=== PATIENT | female | born 1990 | race Caucasian/White ===

== ENCOUNTER 2016-07-03 12:23 | Emergency (ER) | payer OTHER ==
--- NOTE | 2016-07-03 13:06 | ER Document Report ---
ED Medical Screen (RME) - General Stated Complaint: ABDOMINAL PAIN Notes: 26 yo female c/o RLQ pain, vomiting. dull pain starting last night, worse today. + fever earlier today. no urinary complaints, no vaginal discharge. + RLQ pain, abdomen soft. + guarding, no rebound - Related Data Allergies/Adverse Reactions: No Known Allergies Allergy (Unverified 07/03/16 13:02) Physical Exam - Vital signs Vitals: Temp Pulse Resp BP Pulse Ox 98.0 F 95 18 113/69 98 07/03/16 12:59 07/03/16 12:59 07/03/16 12:59 07/03/16 12:59 07/03/16 12:59 Course - Vital Signs Vital signs: Temp Pulse Resp BP Pulse Ox 98.0 F 95 18 113/69 98 07/03/16 12:59 07/03/16 12:59 07/03/16 12:59 07/03/16 12:59 07/03/16 12:59
[2016-07-03 13:34] LABS: ABSOLUTE BASOPHILS # (AUTO) 0.1 10^3/uL (0.0-0.2); ABSOLUTE EOSINOPHILS # (AUTO) 0.1 10^3/uL (0.0-0.6); ABSOLUTE LYMPHOCYTES (AUTO) 1.9 10^3/uL (0.5-4.7); ABSOLUTE MONOCYTES (AUTO) 0.6 10^3/uL (0.1-1.4); ABSOLUTE NEUT (AUTO) 4.5 10^3/uL (1.7-8.2); BASOPHILS % (AUTO) 0.8 % (0-2); EOSINOPHILS % (AUTO) 2.1 % (0-6); HEMATOCRIT 41.1 % (36.0-47.0); HEMOGLOBIN 13.9 g/dL (12.0-15.5); HGB HCT DIFFERENCE 0.6; MEAN CORPUSCULAR HEMOGLOBIN 31.5 pg (27.0-33.4); MEAN CORPUSCULAR VOLUME 93 fl (80-97); MONOCYTES % (AUTO) 7.9 % (3-13); RED BLOOD COUNT 4.43 10^6/uL (3.72-5.28); RED CELL DISTRIBUTION WIDTH 12.2 % (11.5-14.0); SEGMENTED NEUTROPHILS % (AUTO) 62.2 % (42-78); WHITE BLOOD COUNT 7.2 10^3/uL (4.0-10.5)
[2016-07-03 13:38] LABS: APPEARANCE,URINE SLIGHTLY-CLOUDY; BILIRUBIN,URINE NEGATIVE (NEGATIVE); GLUCOSE, URINE NEGATIVE (NEGATIVE); KETONES,URINE NEGATIVE (NEGATIVE); LEUKOCYTE ESTERASE,URINE NEGATIVE (NEGATIVE); NITRITE,URINE NEGATIVE (NEGATIVE); PROTEIN,URINE NEGATIVE (NEGATIVE); URINE SPECIFIC GRAVITY 1.025; UROBILINOGEN,URINE NEGATIVE mg/dL (<2.0)
[2016-07-03 13:47] LABS: ALANINE AMINOTRANSFERASE 29 U/L (9-52); ALBUMIN 4.1 g/dL (3.5-5.0); ALKALINE PHOSPHATASE 63 U/L (38-126); ANION GAP 12 (5-19); ASPARTATE AMINO TRANSFERASE 15 U/L (14-36); BILIRUBIN,TOTAL 0.6 mg/dL (0.2-1.3); BLOOD UREA NITROGEN 16 mg/dL (7-20); CALCIUM 9.7 mg/dL (8.4-10.2); CARBON DIOXIDE 26 mmol/L (22-30); CHLORIDE 106 mmol/L (98-107); CREATININE RESULT 0.73 mg/dL (0.52-1.25); GLUCOSE 70 mg/dL (75-110); POTASSIUM 4.6 mmol/L (3.6-5.0); SODIUM 144.4 mmol/L (137-145); TOTAL PROTEIN 7.2 g/dL (6.3-8.2)
--- NOTE | 2016-07-03 16:25 | ER Document Report ---
ED GI/ - General Mode of Arrival: Ambulatory Information source: Patient TRAVEL OUTSIDE OF THE [place]. IN LAST 30 DAYS: No <BARON BOWMAN - Last Filed: 07/03/16 18:15> <MILAGROS WEST - Last Filed: 07/15/16 13:04> - General Chief Complaint: Abdominal Pain Stated Complaint: ABDOMINAL PAIN Notes: Patient is 26-year-old female presenting to the emergency department concerned of right lower quadrant abdominal pain onset 2 AM today. 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 Patient does not believe that she is at this time. Patient also reports a positive family history of polycystic ovarian syndrome. Patient's last cyst was about a year and a half ago. Patient admits to nausea and vomiting, but denies diarrhea. Patient has no other complaints at this time. (BARON BOWMAN) - Related Data Allergies/Adverse Reactions: lorazepam [From Ativan] Allergy (Verified 07/03/16 13:21) Past Medical History - General Information source: Patient - Social History Smoking Status: Current Every Day Smoker Chew tobacco use (# tins/day): No Frequency of alcohol use: None Drug Abuse: None Family History: Reviewed & Not Pertinent Patient has suicidal ideation: No Patient has homicidal ideation: No Renal/ Medical History: Reports: Hx Ovarian Cysts, Other - Endometriosis. Denies: Hx Peritoneal Dialysis Surgical Hx: Negative <BARON BOWMAN - Last Filed: 07/03/16 18:15> Review of Systems - Review of Systems Constitutional: No symptoms reported EENT: No symptoms reported Cardiovascular: No symptoms reported Respiratory: No symptoms reported Gastrointestinal: See HPI, Abdominal pain, Vomiting Genitourinary: No symptoms reported Female Genitourinary: No symptoms reported Musculoskeletal: No symptoms reported Skin: No symptoms reported Hematologic/Lymphatic: No symptoms reported Neurological/Psychological: No symptoms reported <BARON BOWMAN - Last Filed: 07/03/16 18:15> Physical Exam - Vital signs Interpretation: Normal - General General appearance: Alert - HEENT Head: Normocephalic, Atraumatic Eyes: Normal Pupils: PERRL - Respiratory Respiratory status: No respiratory distress Chest status: Nontender Breath sounds: Normal Chest palpation: Normal - Cardiovascular Rhythm: Regular Heart sounds: Normal auscultation Murmur: No - Abdominal Distension: No distension Bowel sounds: Normal Tenderness: Tender - Suprapubic tenderness to palpation Organomegaly: No organomegaly - Back Back: Normal, Nontender - Extremities General upper extremity: Normal inspection, Nontender, Normal color, Normal ROM , Normal temperature General lower extremity: Normal inspection, Nontender, Normal color, Normal ROM , Normal temperature - Neurological Neuro grossly intact: Yes Cognition: Normal [place] Coma Scale Eye Opening: Spontaneous [place] Com[place] Scale Verbal: Oriented [place] Coma Scale Motor: Obeys Commands [place] Coma Scale Total: 15 Speech: Normal - Psychological Associated symptoms: Normal affect, Normal mood - Skin Skin Temperature: Warm Skin Moisture: Dry Skin Color: Normal <BARON BOWMAN - Last Filed: 07/03/16 18:15> Course - Laboratory Result Diagrams: 07/03/16 13:21 07/03/16 13:21 <BARON BOWMAN - Last Filed: 07/03/16 18:15> - Laboratory Result Diagrams: 07/03/16 13:21 07/03/16 13:21 <MILAGROS WEST - Last Filed: 07/15/16 13:04> - Vital Signs Vital signs: Temp Pulse Resp BP Pulse Ox 98.5 F 65 18 108/59 L 100 07/03/16 17:26 07/03/16 17:26 07/03/16 17:26 07/03/16 17:26 07/03/16 17:26 (BARON BOWMAN) (MILAGROS WEST) - Laboratory Laboratory results interpreted by ny: 07/03/16 13:21 Glucose 70 L (BARON BOWMAN) (MILAGROS WEST) Discharge <BARON BOWMAN - Last Filed: 07/03/16 18:15> <MILAGROS WEST - Last Filed: 07/15/16 13:04> - Discharge Clinical Impression: History of polycystic ovarian syndrome Condition: Stable Disposition: HOME, SELF-CARE Additional Instructions: history Ovarian Cyst and polycystic ovarian syndrome Your examination shows the presence of an ovarian cyst. This is a ball of fluid attached to the ovary. Ovarian cysts in women of child-bearing age are usually innocent. However, the cyst may cause pain when it grows or bursts. An innocent ovarian cyst will usually go away by itself. When the cyst becomes painful, you should rest. Pain medication may be required. Some women find a hot water bottle soothing. The pain usually resolves within one or two days. After menopause, an ovarian cyst may mean a tumor, and requires more aggressive evaluation -- usually surgery is recommended to remove or biopsy the cyst. A very large cyst requires evaluation at any age. Most cysts (even the innocent ones) require follow-up examination. Call the doctor or return at any time if the pain increases significantly, if you become faint, or if you experience vaginal bleeding. Follow-up with your [employer] physician in one to 2 days to discuss getting back on hormonal therapy for your polycystic ovarian syndrome return to the ER sooner for increasing worsening or new symptoms Prescriptions: Naproxen [Naprosyn 375 Mg Tablet] 375 mg PO DAILY #12 tablet Scribe Documentation - Scribe Written by Pawan:: Baron Bowman 07/03/2016 1625 acting as scribe for :: Manish <BARON BOWMAN - Last Filed: 07/03/16 18:15>
[2016-07-03] MEDS ORDERED: KETOROLAC TROMETHAMINE 60 MG/2 ML SDV IM ONE (17:03)
[2016-07-03 17:28] VITALS: BP 108/59
== END 2016-07-03 17:28 | disposition home or self-care (01) ==
LOC: ER 12:23
DX: E28.2 Polycystic ovarian syndrome (principal); R10.31 Right lower quadrant pain; R11.2 Nausea with vomiting, unspecified; F17.200 Nicotine dependence, unspecified, uncomplicated; Z87.42 Personal history of other diseases of the female genital tract; Z83.49 Family history of other endocrine, nutritional and metabolic diseases; Z87.59 Personal history of other complications of pregnancy, childbirth and the puerperium; Z88.8 Allergy status to other drugs, medicaments and biological substances
CPT/HCPCS: 99284; 96372; 36415; 84703; 85025; 80053; 81001; J1885

== ENCOUNTER 2016-08-29 19:56 | Emergency (ER) | payer OTHER ==
[2016-08-29] MEDS ORDERED: HYDROCODONE/ACETAMINOPHEN 5-325 MG 6 TAB/DSPK PO PRN (22:10)
--- NOTE | 2016-08-29 22:11 | ER Document Report ---
ED Neck/Back Problem - General Chief Complaint: Low Back Pain Stated Complaint: BACK PAIN Time seen by provider: 22:10 Mode of Arrival: Ambulatory Information source: Patient TRAVEL OUTSIDE OF THE [place] IN LAST 30 DAYS: No - HPI Patient complains to provider of: Pain, Lower back Onset: Other - Chronic Onset: Chronic Timing: Constant Quality of pain: Achy Severity: Moderate Pain Level: 3 Recent injury: No Exacerbated by: Movement of trunk Relieved by: Nothing Similar symptoms previously: Yes Recently seen / treated by doctor: No Notes: Patient is a 26-year-old female who presents to the emergency room for complaints of low back pain, she reports a history of chronic low back pain with herniated disks in the lumbar spine, states she normally goes to [facility], however she last had an appointment there on July 04 and has been out of town since, she returned and unfortunately cannot get another appointment until October 04, she is currently out of her medications, states she takes Percocet 10 mg 4 times a day patient denies any injury, no saddle anesthesia, no bowel or bladder dysfunction, she does report that pain shoots down her left leg - Related Data Allergies/Adverse Reactions: lorazepam [From Ativan] Allergy (Verified 07/03/16 13:21) Past Medical History - General Information source: Patient - Social History Smoking Status: Former Smoker Family History: Reviewed & Not Pertinent Patient has suicidal ideation: No Patient has homicidal ideation: No Renal/ Medical History: Reports: Hx Ovarian Cysts. Denies: Hx Peritoneal Dialysis Review of Systems - Review of Systems Constitutional: No symptoms reported EENT: No symptoms reported Cardiovascular: No symptoms reported Respiratory: No symptoms reported Gastrointestinal: No symptoms reported Genitourinary: No symptoms reported Female Genitourinary: No symptoms reported Musculoskeletal: See HPI Skin: No symptoms reported Hematologic/Lymphatic: No symptoms reported Neurological/Psychological: No symptoms reported -: Yes All other systems reviewed and negative Physical Exam - Vital signs Vitals: Temp Pulse Resp BP Pulse Ox 97.7 F 94 20 110/65 99 08/29/16 20:56 08/29/16 20:56 08/29/16 20:56 08/29/16 20:56 08/29/16 20:56 - Notes Notes: - General General appearance: Appears well, Alert In distress: None - HEENT Head: Normocephalic, Atraumatic Eyes: Normal Conjunctiva: Normal Extraocular movements intact: Yes Eyelashes: Normal Pupils: PERRL - Respiratory Respiratory status: No respiratory distress - Cardiovascular Rhythm: Regular - Abdominal Inspection: Normal - Back Back: Left lower lumbar paraspinal muscular tenderness - Extremities General upper extremity: Normal inspection General lower extremity: Normal inspection - Neurological Neuro grossly intact: Yes Orientation: AAOx4 [place] Coma Scale Eye Opening: Spontaneous [place] Coma Scale Verbal: Oriented [place] Com[place] Scale Motor: Obeys Commands [place] Coma Scale Total: 15 - Psychological Associated symptoms: Normal affect, Normal mood - Skin Skin Temperature: Warm Skin Moisture: Dry Skin Color: Normal Course - Re-evaluation Re-evalutation: 08/29/16 23:13 Patient was provided with a small amount of narcotic pain medication and advised to follow-up with her buildings painter within the next week, I did consult the [place] controlled substances board website and found patient has not had any recent narcotic prescriptions filled, patient was advised to continue gentle stretching, physical therapy, return if symptoms worsen, patient acknowledges understanding and agreement with this plan - Vital Signs Vital signs: Temp Pulse Resp BP Pulse Ox 97.7 F 94 20 110/65 99 08/29/16 20:56 08/29/16 20:56 08/29/16 20:56 08/29/16 20:56 08/29/16 20:56 Discharge - Discharge Clinical Impression: Low back pain Qualifiers: Chronicity: chronic Back pain laterality: left Sciatica presence: with sciatica Sciatica laterality: sciatica of left side Qualified Code(s): M54.42 - Lumbago with sciatica, left side Condition: Stable Disposition: HOME, SELF-CARE Instructions: Ice Packs ([facility]), Oral Narcotic Medication ([facility]), Low Back Pain ( [facility]), Warm Packs ([facility]) Additional Instructions: Follow up with your primary care provider and buildings painter in one to 2 days. Return to the emergency room immediately if symptoms worsen or any additional concerns. Prescriptions: Oxycodone HCl/Acetaminophen [Percocet 5-325 mg Tablet] 1 - 2 tab PO ASDIR PRN # 15 tablet PRN Reason:
[2016-08-29 23:25] VITALS: BP 111/66
== END 2016-08-29 23:30 | disposition home or self-care (01) ==
LOC: ER 19:56
DX: G89.29 Other chronic pain (principal); M51.16 Intervertebral disc disorders with radiculopathy, lumbar region; Z88.8 Allergy status to other drugs, medicaments and biological substances; Z87.891 Personal history of nicotine dependence
CPT/HCPCS: 99283

== ENCOUNTER 2016-09-30 22:33 | Emergency (ER) | payer OTHER ==
[2016-09-30] MEDS ORDERED: HYDROMORPHONE HCL INJ/PF 2 MG/ML AMPULE IV ONE (23:48)
[2016-09-30] MEDS ORDERED: KETOROLAC TROMETHAMINE INJ/PF 30 MG/1 ML SDV IV ONE (23:48)
[2016-09-30] MEDS ORDERED: ACETAMINOPHEN 325 MG TABLET PO ONE (23:48)
[2016-09-30] MEDS ORDERED: LIDOCAINE 5% (700 MG) TRANSDERMAL ADH..PATCH TP ONE (23:48)
--- NOTE | 2016-09-30 23:52 | ER Document Report ---
ED General - General Chief Complaint: Back Pain Stated Complaint: BACK PAIN Time Seen by Provider: 09/30/16 23:30 Notes: Patient is a 26-year-old female past medical history of chronic low back pain currently off pain management who presents with acute worsening of her chronic back pain. Does describe it as a severe, stabbing, constant pain that is mostly in her left perilumbar spine that radiates into her left leg. This this started abruptly without apparent cause. She did have one episode of urinary incontinence when the pain was at its most severe. Denies any urinary retention , fecal incontinence or retention, weakness, numbness, or inability to ambulate. States she's had similar episodes in the past with exacerbation of her pain. She has not seen her primary doctor regarding today's concerns. She denies any fever, IV drug use, throat, back. TRAVEL OUTSIDE OF THE [place] IN LAST 30 DAYS: No - Related Data Allergies/Adverse Reactions: fentanyl Allergy (Verified 09/30/16 22:57) lorazepam [From Ativan] Allergy (Verified 07/03/16 13:21) Past Medical History - General Information source: Patient - Social History Smoking Status: Never Smoker Frequency of alcohol use: None Drug Abuse: None Lives with: Spouse/Significant other Family History: Reviewed & Not Pertinent Patient has suicidal ideation: No Patient has homicidal ideation: No Renal/ Medical History: Reports: Hx Ovarian Cysts. Denies: Hx Peritoneal Dialysis Psychiatric Medical History: Reports: Hx Bipolar Disorder Past Surgical History: Reports: Hx Gynecologic Surgery - d/c, Hx Hysterectomy, Hx Tonsillectomy - Immunizations Hx Diphtheria, Pertussis, Tetanus Vaccination: Yes Review of Systems - Review of Systems Notes: Constitutional: Negative for fever. HENT: Negative for sore throat. Eyes: Negative for visual changes. Cardiovascular: Negative for chest pain. Respiratory: Negative for shortness of breath. Gastrointestinal: Negative for abdominal pain, vomiting or diarrhea. Genitourinary: Negative for dysuria. Musculoskeletal: Positive for back pain. Skin: Negative for rash. Neurological: Negative for headaches, weakness or numbness. 10 point ROS negative except as marked above and in HPI. Physical Exam - Vital signs Vitals: Temp Pulse Resp BP Pulse Ox 98.0 F 149 H 16 116/78 99 09/30/16 22:53 09/30/16 22:53 09/30/16 22:53 09/30/16 22:53 09/30/16 22:53 Interpretation: Tachycardic Notes: PHYSICAL EXAMINATION: GENERAL: Appears to be in significant pain HEAD: Atraumatic, normocephalic. EYES: Pupils equal round and reactive to light, extraocular movements intact, sclera anicteric, conjunctiva are normal. ENT: nares patent, oropharynx clear without exudates. Moist mucous membranes. NECK: Normal range of motion, supple without lymphadenopathy LUNGS: Breath sounds clear to auscultation bilaterally and equal. No wheezes rales or rhonchi. HEART: Regular rate and rhythm without murmurs ABDOMEN: Soft, nontender, normoactive bowel sounds. No guarding, no rebound. No masses appreciated. Rectal: Normal rectal tone Back: No midline spinal tenderness, step-offs or deformities. EXTREMITIES: Normal range of motion, no pitting or edema. No cyanosis. NEUROLOGICAL: 5 out of 5 strength both distally and proximally bilateral lower extremities. 2+ patellar reflexes bilaterally. No clonus. Sensation grossly intact in the bilateral lower extremities. Patient is able to ambulate without difficulty. PSYCH: Normal mood, normal affect. SKIN: Warm, Dry, normal turgor, no rashes or lesions noted. Course - Re-evaluation Re-evalutation: 09/30/16 23:49 Patient presents with acute worsening of her chronic back pain that she sustained after an axial load injury while in the [employer]. She did have urinary incontinence today during the worst portion of the pain and I suspect this was pain related. Exam is without point tenderness over vertebral bodies, pulsatile abdominal mass , and patient has symmetric and intact lower extremity strength, sensation, and reflexes without clonus. 2+ symmetric medial malleolar and dorsalis pedis pulses. She is able to ambulate on heels and toes. Rectal exam with normal tone. At this time do not see any indication for acute neurologic imaging. Will provide pain control and reassess 10/01/16 01:35 Patient is had resolution of her pain. No further urinary incontinence. She has voided without difficulty. Ambulatory without difficulty.At this time will discharge with return precautions and follow-up recommendations. Verbal discharge instructions given a the bedside and opportunity for questions given. Medication warnings reviewed. Patient is in agreement with this plan and has verbalized understanding of return precautions and the need for primary care follow-up in the next 24-72 hours. - Vital Signs Vital signs: Temp Pulse Resp BP Pulse Ox 98.0 F 149 H 14 97/67 L 95 09/30/16 22:53 09/30/16 22:53 10/01/16 01:26 10/01/16 01:26 10/01/16 01:26 Discharge - Discharge Clinical Impression: Back pain Qualifiers: Back pain location: low back pain Chronicity: acute Back pain laterality: left Sciatica presence: with sciatica Sciatica laterality: sciatica of left side Qualified Code(s): M54.42 - Lumbago with sciatica, left side Condition: Good Disposition: HOME, SELF-CARE Additional Instructions: You have been seen in the Emergency Department (ED) today for back pain. Your workup and exam have not shown any acute abnormalities and you are likely suffering from muscle strain or possible problems with your discs, but there is no treatment that will fix your symptoms at this time. Please take ibuprofen 600 mg every 6 hours in conjunction with Tylenol 1000 mg every 6 hours. You can take the morphine that you were sent home with for pain that is not controlled by the Tylenol and ibuprofen. You should also purchase a local lidocaine cream such as "aspercreme with lidocaine" and use per bottle instructions to the affected area. Apply heat to the area as often as you are able. Continue to keep active and avoid prolonged periods of bed rest. Please follow up with your doctor as soon as possible regarding today's ED visit and your back pain. Return to the ED for worsening back pain, fever, weakness or numbness of either leg, or if you develop either (1) an inability to urinate or have bowel movements, or (2) loss of your ability to control your bathroom functions (if you start having "accidents"), or if you develop other new symptoms that concern you.concern you. With strongly recommend that you follow-up with [facility] or [facility] neurosurgery for consideration of a surgical management of your back pain given your severe radicular symptoms and failure alternative therapies. Prescriptions: Morphine Sulfate [Morphine Ir 15 mg Tablet] 15 mg PO Q4HP PRN #12 tablet PRN Reason:
[2016-10-01] MEDS ORDERED: HYDROMORPHONE HCL INJ/PF 2 MG/ML AMPULE IV ONE (00:48)
[2016-10-01 02:17] VITALS: BP 104/71
== END 2016-10-01 02:10 | disposition home or self-care (01) ==
LOC: ER 22:33
DX: M54.42 Lumbago with sciatica, left side (principal); G89.29 Other chronic pain; R32 Unspecified urinary incontinence; R00.0 Tachycardia, unspecified
CPT/HCPCS: 96376; 99283; 96374; 96375; J1885; J1170

== ENCOUNTER 2016-10-17 15:38 | Emergency (ER) | payer OTHER ==
[2016-10-17] MEDS ORDERED: KETOROLAC TROMETHAMINE 60 MG/2 ML SDV IM ONE (16:19)
[2016-10-17] MEDS ORDERED: PROMETHAZINE HCL 25 MG TABLET PO ONE (16:20)
[2016-10-17] MEDS ORDERED: OXYCODONE-ACETAMINOPHEN 5-325 MG TABLET PO ONE (16:20)
--- NOTE | 2016-10-17 16:24 | ER Document Report ---
ED Medical Screen (RME) - General Chief Complaint: Pelvic Pain Stated Complaint: VAGINAL BLEEDING Time Seen by Provider: 10/17/16 16:19 Notes: Patient is complaining of pelvic pain for the past 5 weeks, ever since 09/12, when she had a Mirena IUD placed. She had severe pain at the time that the IUD was put in and has had constant, daily pain ever since then. She has been back to see the primary care physician and put the IUD in and they declined to remove it and said that it was normal for her to hurt for a while and it would get better. She attempted to go back a second time and was advised that if she was having this much pain, that she should come to the emergency department to be evaluated patient says she has had constant bleeding since the IUD was inserted. No other symptoms. No fevers. Patient has a history of endometriosis as well as PCOS. TRAVEL OUTSIDE OF THE [place] IN LAST 30 DAYS: No - Related Data Allergies/Adverse Reactions: fentanyl Allergy (Verified 10/17/16 16:03) lorazepam [From Ativan] Allergy (Verified 10/17/16 16:03) Past Medical History Renal/ Medical History: Reports: Hx Ovarian Cysts. Denies: Hx Peritoneal Dialysis Psychiatric Medical History: Reports: Hx Bipolar Disorder Past Surgical History: Reports: Hx Gynecologic Surgery - d/c, Hx Hysterectomy, Hx Tonsillectomy - Immunizations Hx Diphtheria, Pertussis, Tetanus Vaccination: Yes Physical Exam - Vital signs Vitals: Temp Pulse Resp BP Pulse Ox 97.4 F 64 18 108/65 100 10/17/16 15:47 10/17/16 15:47 10/17/16 15:47 10/17/16 15:47 10/17/16 15:47 Course - Vital Signs Vital signs: Temp Pulse Resp BP Pulse Ox 97.4 F 64 18 108/65 100 10/17/16 15:47 10/17/16 15:47 10/17/16 15:47 10/17/16 15:47 10/17/16 15:47 - Laboratory Result Diagrams: 10/17/16 17:35
[2016-10-17 17:49] LABS: ABSOLUTE BASOPHILS # (AUTO) 0.1 10^3/uL (0.0-0.2); ABSOLUTE EOSINOPHILS # (AUTO) 0.1 10^3/uL (0.0-0.6); ABSOLUTE LYMPHOCYTES (AUTO) 2.4 10^3/uL (0.5-4.7); ABSOLUTE MONOCYTES (AUTO) 0.5 10^3/uL (0.1-1.4); ABSOLUTE NEUT (AUTO) 4.6 10^3/uL (1.7-8.2); EOSINOPHILS % (AUTO) 1.3 % (0-6); HEMATOCRIT 42.3 % (36.0-47.0); HEMOGLOBIN 14.2 g/dL (12.0-15.5); HGB HCT DIFFERENCE 0.3; LYMPHOCYTES % (AUTO) 30.8 % (13-45); MEAN CORPUSCULAR HEMOGLOBIN 31.2 pg (27.0-33.4); MEAN CORPUSCULAR HGB CONC 33.6 g/dL (32.0-36.0); MEAN CORPUSCULAR VOLUME 93 fl (80-97); MONOCYTES % (AUTO) 6.5 % (3-13); RED BLOOD COUNT 4.55 10^6/uL (3.72-5.28); RED CELL DISTRIBUTION WIDTH 12.5 % (11.5-14.0); SEGMENTED NEUTROPHILS % (AUTO) 60.4 % (42-78); WHITE BLOOD COUNT 7.7 10^3/uL (4.0-10.5)
--- NOTE | 2016-10-17 18:40 | RADIOLOGY REPORT (SQ) ---
EXAM DESCRIPTION: U/S NON OB PEL TV W/DOPPLER COMPLETED DATE/TIME: 10/17/2016 6:05 pm REASON FOR STUDY: Severe pelvic pain since IUD insertion 5 weeks ago COMPARISON: None. TECHNIQUE: Dynamic and static grayscale images acquired of the pelvis via transvaginal approach and recorded on PACS. Additional selected color Doppler and spectral images recorded. LIMITATIONS: None. FINDINGS: UTERUS: Contour normal. No mass. ENDOMETRIAL STRIPE: An IUD is present. CERVIX: No nabothian cysts. RIGHT OVARY: Small follicles are present peripherally. RIGHT OVARY DOPPLER: Normal arterial vascular flow without evidence for torsion. LEFT OVARY: Small follicles are present peripherally. LEFT OVARY DOPPLER: Normal arterial vascular flow without evidence for torsion. FREE FLUID: None noted. OTHER: No other significant finding. MEASUREMENTS: UTERUS: 63 x 40 x 37 mm ENDOMETRIAL STRIPE: 5 mm RIGHT OVARY: 36 x 23 x 22 mm LEFT OVARY: 38 x 49 x 25 mm IMPRESSION: The study is essentially normal. The appearance of the follicles in each ovary does rev eal raises the issue of polycystic ovarian syndrome. Correlate clinically. TECHNICAL DOCUMENTATION: JOB ID: [id number] [employer]- All Rights Reserved
--- NOTE | 2016-10-17 19:58 | ER Document Report ---
ED GI/ - General Chief Complaint: Pelvic Pain Stated Complaint: VAGINAL BLEEDING Time Seen by Provider: 10/17/16 16:19 Mode of Arrival: Ambulatory Information source: Patient Notes: Pt is a 26 year old female who presents to the ER today for pelvic pain x 5 weeks after getting Mirena put in. Pt has seen her provider that put it in, but they refused to take it out per pt because of the "cost of putting it in." She has been in pain every day since, with first bright red blood, then brown blood daily. She hasn't stopped bleeding at all she states. She denies any otherwise abnormal vaginal discharge, dysuria She does have a history of pcos. She states she is unable to have sexual intercourse due to the pain. TRAVEL OUTSIDE OF THE [place] IN LAST 30 DAYS: No - Related Data Allergies/Adverse Reactions: fentanyl Allergy (Verified 10/17/16 16:03) lorazepam [From Ativan] Allergy (Verified 10/17/16 16:03) Past Medical History - General Information source: Patient - Social History Smoking Status: Unknown if Ever Smoked Family History: Reviewed & Not Pertinent Renal/ Medical History: Reports: Hx Ovarian Cysts. Denies: Hx Peritoneal Dialysis Psychiatric Medical History: Reports: Hx Bipolar Disorder Past Surgical History: Reports: Hx Gynecologic Surgery - d/c, Hx Hysterectomy, Hx Tonsillectomy - Immunizations Hx Diphtheria, Pertussis, Tetanus Vaccination: Yes Review of Systems - Review of Systems Constitutional: No symptoms reported EENT: No symptoms reported Cardiovascular: No symptoms reported Respiratory: No symptoms reported Gastrointestinal: No symptoms reported Genitourinary: No symptoms reported Female Genitourinary: See HPI Musculoskeletal: No symptoms reported Skin: No symptoms reported Hematologic/Lymphatic: No symptoms reported Neurological/Psychological: No symptoms reported Physical Exam - Vital signs Vitals: Temp Pulse Resp BP Pulse Ox 97.4 F 64 18 108/65 100 10/17/16 15:47 10/17/16 15:47 10/17/16 15:47 10/17/16 15:47 10/17/16 15:47 - Notes Notes: PHYSICAL EXAMINATION: GENERAL: Well-appearing and in no acute distress. HEAD: Atraumatic, normocephalic. EYES: Pupils equal round and reactive to light, extraocular movements intact, sclera anicteric, conjunctiva are normal. NECK: Normal range of motion, supple without lymphadenopathy LUNGS: CTAB and equal. No wheezes rales or rhonchi. HEART: Regular rate and rhythm without murmurs ABDOMEN: Soft, pubic tenderness. No guarding, no rebound BACK: no vertebral tenderness, normal ROM GI/: no CVA tenderness pelvic: Cervical motion tenderness, brown blood and vaginal canal, IUD strings present, adnexal tenderness bilaterally with exam, increased tenderness to pelvic exam EXTREMITIES: Normal range of motion, no pitting edema. No cyanosis. NEUROLOGICAL: Cranial nerves grossly intact. Normal sensory/motor exams. PSYCH: Normal mood, normal affect. SKIN: Warm, Dry, normal turgor, no rashes or lesions noted Course - Re-evaluation Re-evalutation: 10/17/16 21:02 IUD was removed successfully. Patient will be placed on antibiotics for pelvic inflammatory disease, wet mount sent to lab but patient does not want to wait on results. - Vital Signs Vital signs: Temp Pulse Resp BP Pulse Ox 97.5 F 68 20 110/70 99 10/17/16 21:17 10/17/16 21:17 10/17/16 21:17 10/17/16 21:17 10/17/16 21:17 - Laboratory Result Diagrams: 10/17/16 17:35 Procedures - Pelvic Exam Pelvic exam Time completed: 21:00 Cultures obtained: Yes Wet prep obtained: Yes Foreign body removed: Yes - IUD Bimanual exam performed: Yes - Cervical motion tenderness, adnexal tenderness, increased tenderness to exa Witnessed by: SARAH Solis Discharge - Discharge Clinical Impression: Encounter for IUD removal, Pelvic pain, Yeast infection, Pelvic inflammatory disease Condition: Stable Disposition: HOME, SELF-CARE Instructions: Pelvic Pain ([facility]), Pelvic Inflammatory Disease ([facility]), Doxycycline ([facility]), Metronidazole ([facility]) Additional Instructions: Return immediately for any new or worsening symptoms. Follow up with primary care provider, call tomorrow to make followup appointment. Prescriptions: Doxycycline Hyclate 100 mg PO BID #28 capsule Fluconazole [Diflucan] 200 mg PO ASDIR #2 tablet Hydrocodone/Acetaminophen [[place] 5-325 mg Tablet] 1 tab PO Q4 PRN #12 tablet PRN Reason: Metronidazole [Flagyl 500 mg Tablet] 500 mg PO Q12 #28 tablet Forms: Return to School
[2016-10-17] MEDS ORDERED: HYDROCODONE/ACETAMINOPHEN 5-325 MG TABLET PO ONE (20:18)
[2016-10-17] MEDS ORDERED: METRONIDAZOLE 500 MG TABLET PO ONE (20:57)
[2016-10-17] MEDS ORDERED: DOXYCYCLINE HYCLATE 100 MG TABLET PO ONE (20:57)
[2016-10-17] MEDS ORDERED: HYDROCODONE/ACETAMINOPHEN 5-325 MG 6 TAB/DSPK PO PRN (20:57)
[2016-10-17 21:18] VITALS: BP 110/70
[2016-10-17 22:42] LABS: CHLAM PCR NOT DETECTED (NOT DETECT)
== END 2016-10-17 21:17 | disposition home or self-care (01) ==
LOC: ER 15:38
PROC: 0UPDXHZ Removal of Contraceptive Device from Uterus and Cervix, External Approach (ICD-10-PCS; principal; 2016-10-17)
DX: N73.9 Female pelvic inflammatory disease, unspecified (principal); B37.9 Candidiasis, unspecified; Z30.432 Encounter for removal of intrauterine contraceptive device; E28.2 Polycystic ovarian syndrome; N93.9 Abnormal uterine and vaginal bleeding, unspecified; R10.2 Pelvic and perineal pain; Z88.5 Allergy status to narcotic agent; Z88.8 Allergy status to other drugs, medicaments and biological substances; Z90.710 Acquired absence of both cervix and uterus
CPT/HCPCS: 99284; 96372; 36415; 87210; 85025; 81025; 87491; 87591; 76830; 93976; 58301; J1885

== ENCOUNTER 2017-05-09 16:05 | Emergency (ER) | payer OTHER ==
--- NOTE | 2017-05-09 16:35 | ER Document Report ---
HPI - HPI Pain Level: 4 Notes: Patient is a 27-year-old female who presents the ED complaining of left knee pain status post injury while she was at a bar a couple days ago. Patient states that she was trying to do the splits and discovered that she can no longer do the splits and felt her knee pop. Patient states that since then she has had pain on the right side of her knee as well as posterior. Patient states that she has been limping on her knee and has not noticed any obvious swelling or bruising. Patient states that she did have a laparoscopic procedure to the left knee in the past. She has no other concerns or complaints. Patient does not wish to have any Tylenol or Motrin at this time. Denies any headache, fever, neck pain, URI, sore throat, chest pain, palpitations, syncope, cough, shortness of breath, wheeze, dyspnea, abdominal pain, nausea/vomiting/diarrhea, urinary retention, dysuria, hematuria, loss of control of bowel or bladder, numbness/tingling, saddle anesthesia, muscle paralysis/weakness, or rash. - ROS Notes: REVIEW OF SYSTEMS: CONSTITUTIONAL : Denies fever, chills, or sweats. Denies recent illness. EENT: Denies eye, ear, throat, or mouth pain or symptoms. Denies nasal or sinus congestion or discharge. Denies throat, tongue, or mouth swelling or difficulty swallowing. CARDIOVASCULAR: Denies chest pain. Denies palpitations or racing or irregular heart beat. Denies ankle edema. RESPIRATORY: Denies cough, cold, or chest congestion. Denies shortness of breath, difficulty breathing, or wheezing. GASTROINTESTINAL: Denies abdominal pain or distention. Denies nausea, vomiting , or diarrhea. Denies blood in vomitus, stools, or per rectum. Denies black, tarry stools. Denies constipation. GENITOURINARY: Denies difficulty urinating, painful urination, burning, frequency, blood in urine, or discharge. MUSCULOSKELETAL: see hpi SKIN: Denies rash, lesions or sores. NEUROLOGICAL: Denies dizziness or lightheadedness. Denies headache. Denies weakness or paralysis or loss of use of either side. Denies problems with gait or speech. Denies sensory loss, numbness, or tingling. Denies seizures. ALL OTHER SYSTEMS REVIEWED AND NEGATIVE. Dictation was performed using Dragon voice recognition software Past Medical History - Social History Smoking Status: Current Every Day Smoker Family History: Reviewed & Not Pertinent Renal/ Medical History: Reports: Hx Ovarian Cysts. Denies: Hx Peritoneal Dialysis Psychiatric Medical History: Reports: Hx Bipolar Disorder Past Surgical History: Reports: Hx Gynecologic Surgery - d/c, Hx Hysterectomy, Hx Tonsillectomy - Immunizations Hx Diphtheria, Pertussis, Tetanus Vaccination: Yes Vertical Provider Document - CONSTITUTIONAL Agree With Documented VS: Yes Notes: PHYSICAL EXAMINATION: GENERAL: Well-appearing, well-nourished and in no acute distress. LUNGS: Breath sounds clear to auscultation bilaterally and equal. No wheezes rales or rhonchi. HEART: Regular rate and rhythm without murmurs, rubs, gallops. Musculoskeletal: Left knee: No erythema, effusion, ecchymosis, warmth, obvious deformity. FROM to passive/active. Strength 5+/5. ?+ Guru. Ligaments feel relatively stable, but pt resisting. N/V intact distal otherwise. Extremities: No cyanosis, clubbing, or edema b/l. Peripheral pulses 2+. Capillary refill less than 3 seconds. NEUROLOGICAL: Normal speech, limping gait. Normal sensory, motor exams PSYCH: Normal mood, normal affect. SKIN: Warm, Dry, normal turgor, no rashes or lesions noted. - INFECTION CONTROL TRAVEL OUTSIDE OF THE [place] IN LAST 30 DAYS: No - RESPIRATORY O2 Sat by Pulse Oximetry: 97 Course - Re-evaluation Re-evalutation: 05/09/17 18:20 Patient is an afebrile, well-hydrated, 27-year-old female who presents ED with left knee pain, suspect possible internal involvement. Vitals are stable. PE is otherwise unremarkable for any neurovascular compromise, obvious tendon/ ligament rupture, obvious fracture or dislocation, or septic joint. X-ray was unremarkable for any acute pathology. Knee immobilizer was placed and crutches were given. Patient declined any Tylenol or Motrin today. Recommend conservative measures otherwise for symptoms. Recheck with orthopedics for further evaluation and management. Recheck with your PCM in 3-5 days as well. Return to the ED with any worsening/concerning symptoms otherwise as reviewed in discharge. Patient is in agreement. - Vital Signs Vital signs: Temp Pulse Resp BP Pulse Ox 98.4 F 83 16 115/77 97 05/09/17 16:10 05/09/17 16:10 05/09/17 16:10 05/09/17 16:10 05/09/17 16:10 Discharge - Discharge Clinical Impression: Left knee pain Qualifiers: Chronicity: acute Qualified Code(s): M25.562 - Pain in left knee Condition: Stable Disposition: HOME, SELF-CARE Instructions: Use of Crutches ([facility]), Ice & Elevation ([facility]), Suspected Internal Knee Injury ([facility]), Knee Immobilizing Splint ([facility]) Additional Instructions: Rest, Ice, Compression, Elevation Use splint/crutches as directed Tylenol/ibuprofen as needed Light stretches daily Strength exercises as able Moist heat and massage may help F/u with your PCP in 3-5 days for a recheck Call orthopedics tomorrow to set up an appointment for further evaluation and management Return to the ED with any worsening symptoms and/or development of fever, headache, chest pain, palpitations, syncope, shortness of breath, trouble breathing, abdominal pain, n/v/d, muscle weakness/paralysis, numbness/tingling, swelling, redness, or other worsening symptoms that are concerning to you. Prescriptions: Naproxen 500 mg PO BID PRN #30 tablet PRN Reason: Referrals: [facility] ([facility]) [Provider Group] - Follow up as needed
--- NOTE | 2017-05-09 17:41 | RADIOLOGY REPORT (SQ) ---
EXAM DESCRIPTION: KNEE LEFT 4 VIEW COMPLETED DATE/TIME: 05/09/2017 5:05 pm REASON FOR STUDY: left knee pain COMPARISON: None. NUMBER OF VIEWS: Four views. TECHNIQUE: AP, lateral, and both oblique radiographic images acquired of the left knee. LIMITATIONS: None. FINDINGS: MINERALIZATION: Normal. BONES: No acute fracture or dislocation. No worrisome bone lesions. JOINT: No effusion. SOFT TISSUES: No soft tissue swelling. No radio-opaque foreign body. OTHER: No other significant finding. IMPRESSION: NEGATIVE STUDY OF THE LEFT KNEE. NO RADIOGRAPHIC EVIDENCE OF ACUTE INJURY. TECHNICAL DOCUMENTATION: JOB ID: [id number] [employer]- All Rights Reserved
[2017-05-09 18:34] VITALS: BP 107/63
== END 2017-05-09 18:34 | disposition home or self-care (01) ==
LOC: ER 16:05
DX: M25.562 Pain in left knee (principal); Z98.890 Other specified postprocedural states; F17.200 Nicotine dependence, unspecified, uncomplicated
CPT/HCPCS: 99283; 73562; L1830

== ENCOUNTER 2018-04-02 14:44 | Emergency (ER) | payer OTHER ==
[2018-04-02] MEDS ORDERED: KETOROLAC TROMETHAMINE INJ/PF 30 MG/1 ML SDV IV ONE (15:56)
[2018-04-02] MEDS ORDERED: ONDANSETRON HCL INJ/PF 4 MG/2 ML SDV IV ONE (15:56)
[2018-04-02] MEDS ORDERED: DICYCLOMINE HCL 20 MG TABLET PO ONE (15:57)
--- NOTE | 2018-04-02 15:58 | ER Document Report ---
ED Medical Screen (RME) - General Chief Complaint: Pelvic Pain Stated Complaint: PELVIC PAIN Time Seen by Provider: 04/02/18 15:56 Notes: 28 years old female with a history of endometriosis presents today with lower abdominal pain since yesterday but more so today with crampy and severe pain. She went to the and referred over here. No fever chills or other constitutional symptoms Sharp bilateral lower abdominal tenderness, fecal mass TRAVEL OUTSIDE OF THE [place] IN LAST 30 DAYS: No - Related Data Allergies/Adverse Reactions: fentanyl Allergy (Verified 04/02/18 14:46) lorazepam [From Ativan] Allergy (Verified 04/02/18 14:46) Past Medical History - Social History Chew tobacco use (# tins/day): No Frequency of alcohol use: None Drug Abuse: None Renal/ Medical History: Reports: Hx Ovarian Cysts. Denies: Hx Peritoneal Dialysis Psychiatric Medical History: Reports: Hx Bipolar Disorder Past Surgical History: Reports: Hx Gynecologic Surgery - d/c, Hx Hysterectomy, Hx Orthopedic Surgery - L knee scope, Hx Tonsillectomy - Immunizations Hx Diphtheria, Pertussis, Tetanus Vaccination: Yes Physical Exam - Vital signs Vitals: Temp Pulse Resp BP Pulse Ox 97.9 F 73 16 112/74 99 04/02/18 14:51 04/02/18 14:51 04/02/18 14:51 04/02/18 14:51 04/02/18 14:51 Course - Vital Signs Vital signs: Temp Pulse Resp BP Pulse Ox 97.9 F 73 16 112/74 99 04/02/18 14:51 04/02/18 14:51 04/02/18 14:51 04/02/18 14:51 04/02/18 14:51 Doctor's Discharge - Discharge Referrals: HOLLAND [email or web address] III, MD [Primary Care Provider] - Follow up as needed
[2018-04-02 16:31] LABS: ABSOLUTE EOSINOPHILS # (AUTO) 0.1 10^3/uL (0.0-0.6); ABSOLUTE LYMPHOCYTES (AUTO) 2.1 10^3/uL (0.5-4.7); ABSOLUTE MONOCYTES (AUTO) 0.4 10^3/uL (0.1-1.4); ABSOLUTE NEUT (AUTO) 3.8 10^3/uL (1.7-8.2); BASOPHILS % (AUTO) 0.7 % (0-2); HEMATOCRIT 42.7 % (36.0-47.0); HEMOGLOBIN 14.6 g/dL (12.0-15.5); LYMPHOCYTES % (AUTO) 32.2 % (13-45); MEAN CORPUSCULAR HEMOGLOBIN 31.2 pg (27.0-33.4); MEAN CORPUSCULAR HGB CONC 34.1 g/dL (32.0-36.0); MEAN CORPUSCULAR VOLUME 91 fl (80-97); MONOCYTES % (AUTO) 6.8 % (3-13); PLATELET COUNT 214 10^3/uL (150-450); RED BLOOD COUNT 4.67 10^6/uL (3.72-5.28); RED CELL DISTRIBUTION WIDTH 12.3 % (11.5-14.0); SEGMENTED NEUTROPHILS % (AUTO) 58.3 % (42-78); TOTAL CELLS COUNTED % (AUTO) 100 %; WHITE BLOOD COUNT 6.6 10^3/uL (4.0-10.5)
[2018-04-02 16:37] LABS: APPEARANCE,URINE SLIGHTLY-CLOUDY; BILIRUBIN,URINE NEGATIVE (NEGATIVE); COLOR,URINE YELLOW; GLUCOSE, URINE NEGATIVE (NEGATIVE); KETONES,URINE NEGATIVE (NEGATIVE); LEUKOCYTE ESTERASE,URINE NEGATIVE (NEGATIVE); NITRITE,URINE NEGATIVE (NEGATIVE); PROTEIN,URINE NEGATIVE (NEGATIVE); URINE SPECIFIC GRAVITY 1.023; UROBILINOGEN,URINE NEGATIVE mg/dL (<2.0)
--- NOTE | 2018-04-02 17:07 | RADIOLOGY REPORT (SQ) ---
EXAM DESCRIPTION: ACUTE ABDOMEN SERIES COMPLETED DATE/TIME: 04/02/2018 4:59 pm REASON FOR STUDY: Acute abdominal pain COMPARISON: None. NUMBER OF VIEWS: Three views. TECHNIQUE: Frontal chest, supine abdomen and upright/decubitus abdomen radiographic images acquired. LIMITATIONS: None. FINDINGS: CHEST: Lungs clear of infiltrates. FREE AIR: None. No abnormal gas collections. BOWEL GAS PATTERN: Nonobstructive pattern. No dilated loops or air fluid levels. CALCIFICATIONS: No suspicious calcifications. HARDWARE: None in the abdomen. SOFT TISSUES: No gross mass or suggestion of organomegaly. BONES: No acute fracture. No worrisome bone lesions. OTHER: No other significant finding. IMPRESSION: NO RADIOGRAPHIC EVIDENCE FOR ACUTE ABDOMINAL DISEASE. TECHNICAL DOCUMENTATION: JOB ID: [id number] [employer]- All Rights Reserved Reading location - IP/workstation name: [email or web address]
--- NOTE | 2018-04-02 18:23 | ER Document Report ---
ED GI/ - General Chief Complaint: Pelvic Pain Stated Complaint: PELVIC PAIN Time Seen by Provider: 04/02/18 15:56 Mode of Arrival: Ambulatory Information source: Patient Notes: 28-year-old female presented to ED for complaint of bilateral lower abdominal pain that is sharp and intense and similar to her previous endometriosis pain. She states the pain started yesterday and became worse today. It was cramping and sharp. She states she went to the [facility] and they told her to come to the emergency room as they did not have an appointment today. She states she is treated her endometriosis with Xulane control patches and NSAIDs but she does not have a prescription for either at this time. TRAVEL OUTSIDE OF THE [place] IN LAST 30 DAYS: No - HPI Patient complains to provider of: Pelvic pain Onset: Other Timing/Duration: Gradual, Worse Quality of pain: Cramping, Sharp Severity at maximum: Moderate Severity in ED: Moderate Pain Level: 3 Location: Pelvis Vaginal bleeding (Compared to normal period): None Associated symptoms: Nausea, Other - Pelvic pain Exacerbated by: Standing, Movement, Walking Relieved by: Denies Similar symptoms previously: Yes Recently seen / treated by doctor: No - Related Data Allergies/Adverse Reactions: fentanyl Allergy (Verified 04/02/18 14:46) lorazepam [From Ativan] Allergy (Verified 04/02/18 14:46) Past Medical History - General Information source: Patient - Social History Smoking Status: Former Smoker Cigarette use (# per day): No Chew tobacco use (# tins/day): No Smoking Education Provided: No Frequency of alcohol use: None Drug Abuse: None Lives with: Family Family History: Reviewed & Not Pertinent Patient has suicidal ideation: No Patient has homicidal ideation: No - Past Medical History Cardiac Medical History: Reports: None Pulmonary Medical History: Reports: None EENT Medical History: Reports: None Neurological Medical History: Reports: None Endocrine Medical History: Reports: None Renal/ Medical History: Reports: Hx Ovarian Cysts - PCO S, Other - Nickolas this Malignancy Medical History: Reports: None GI Medical History: Reports: None Musculoskeletal Medical History: Reports Hx Musculoskeletal Deformity, Reports Hx Musculoskeletal Trauma Skin Medical History: Reports None Psychiatric Medical History: Reports: Hx Bipolar Disorder Infectious Medical History: Reports: None Past Surgical History: Reports: Hx Gynecologic Surgery - d/c, laparoscopic surgery x2,, Hx Orthopedic Surgery - L knee scope, Hx Tonsillectomy - Immunizations Hx Diphtheria, Pertussis, Tetanus Vaccination: Yes Review of Systems - Review of Systems Notes: REVIEW OF SYSTEMS: CONSTITUTIONAL : Denies fever, chills, or sweats. Denies recent illness. EENT: Denies eye, ear, throat, or mouth pain or symptoms. Denies nasal or sinus congestion or discharge. Denies throat, tongue, or mouth swelling or difficulty swallowing. CARDIOVASCULAR: Denies chest pain. Denies palpitations or racing or irregular heart beat. Denies ankle edema. RESPIRATORY: Denies cough, cold, or chest congestion. Denies shortness of breath, difficulty breathing, or wheezing. GASTROINTESTINAL: Denies abdominal pain or distention. Denies nausea, vomiting , or diarrhea. Denies blood in vomitus, stools, or per rectum. Denies black, tarry stools. Denies constipation. GENITOURINARY: Denies difficulty urinating, painful urination, burning, frequency, blood in urine, or discharge. FEMALE GENITOURINARY: Denies vaginal bleeding, heavy or abnormal periods, irregular periods. Denies vaginal discharge or odor. MUSCULOSKELETAL: Denies back or neck pain or stiffness. Denies joint pain or swelling. SKIN: Denies rash, lesions or sores. HEMATOLOGIC : Denies easy bruising or bleeding. LYMPHATIC: Denies swollen, enlarged glands. NEUROLOGICAL: Denies confusion or altered mental status. Denies passing out or loss of consciousness. Denies dizziness or lightheadedness. Denies headache. Denies weakness or paralysis or loss of use of either side. Denies problems with gait or speech. Denies sensory loss, numbness, or tingling. Denies seizures. PHYSICAL EXAMINATION: GENERAL: Well-appearing, well-nourished and in no acute distress. HEAD: Atraumatic, normocephalic. LUNGS: Breath sounds clear to auscultation bilaterally and equal. No wheezes rales or rhonchi. HEART: Regular rate and rhythm without murmurs ABDOMEN: Soft, tender to bilateral lower abdomen/pelvic. No guarding, no rebound. No masses appreciated. Female : deferred Musculoskeletal: Normal range of motion, no pitting or edema. No cyanosis. ALL OTHER SYSTEMS REVIEWED AND NEGATIVE. Dictation was performed using [employer] voice recognition software review Physical Exam - Vital signs Vitals: Temp Pulse Resp BP Pulse Ox 97.9 F 73 16 112/74 99 04/02/18 14:51 04/02/18 14:51 04/02/18 14:51 04/02/18 14:51 04/02/18 14:51 Course - Re-evaluation Re-evalutation: 04/03/18 02:15 Is an x-ray discussed with patient. Patient states she usually takes Reglan control patches and anti-inflammatories for her pain. She states that since she is getting a divorce she had to give up her and she no longer has a primary doctor as she was going on in the [employer] base. She states she needs to get a new doctor in order to get prescriptions for her medications. She states she went to the [facility] in September and they were supposed to get her primary doctor but they had not yet provided her with a name of a new provider. She states that they are in the works of getting her a new provider. I wrote a prescription for this Reglan and naproxen for her pain. Also wrote Zofran for her nausea. She was discharged home with instructions for follow-up with the [facility] and use of ice and heat as necessary for pain. Patient was able to verbalize understanding and agreement with treatment plan. - Vital Signs Vital signs: Temp Pulse Resp BP Pulse Ox 97.8 F 65 16 107/60 100 04/02/18 19:38 04/02/18 19:38 04/02/18 14:51 04/02/18 19:38 04/02/18 19:38 - Laboratory Result Diagrams: 04/02/18 16:17 04/02/18 17:55 Laboratory results interpreted by me: 04/02/18 04/02/18 17:55 19:24 Sodium 135.7 L Glucose 63 L POC Glucose 124 H - Diagnostic Test Radiology reviewed: Image reviewed, Reports reviewed Discharge - Discharge Clinical Impression: Pelvic pain Condition: Stable Disposition: HOME, SELF-CARE Additional Instructions: PELVIC PAIN: There are many causes of pain in the pelvic area. The cause could be the tubes, ovaries, uterus, intestines, appendix, pelvic muscles and connective tissue, or the urinary tract. The cause of your pelvic pain is not clear. However, it seems safe to treat you outside the hospital. If the pain sounds like a temporary problem, we sometimes wait to see if it goes away. Other patients may need additional tests, such as pelvic ultrasound or cultures. Conditions may change. Call us or come back for reexamination if any problems occur, such as: (1) Pain that becomes more severe, steady, or becomes concentrated in one specific area. Also, pain that is more severe with movement or coughing. (2) Vomiting that persists or becomes more frequent. (3) Blood in the vomitus, urine, or bowel movements. Blood in the stool may have a tarry or black appearance. (4) Shaking chills or fever greater than 100 degrees. (5) The abdomen becomes more distended or swollen. (6) Bowel movements cease. (7) Heavy vaginal bleeding. TORADOL INJECTION: You have been given an injection of ketorolac tromethamine (Toradol). This is an excellent, safe drug for pain control. It also has potent antiinflammatory action. You should have significant pain relief within about one hour. Toradol is not addicting and is non-sedating. It does not interfere with driving or work. Call or return if you develop itching, hives, shortness of breath, or rash. ANTINAUSEA MEDICATION: You have been given a medication to suppress nausea and vomiting. This type of medication can be given as a shot, pill, or suppository. It will usually last for many hours. Pills and shots usually last six to eight hours. For the typical illness, only one or two doses of the medication may be necessary. Mild lightheadedness may occur. This type of medicine can cause drowsiness. Do not drive or operate dangerous machinery while under its influence. Do not mix with alcohol. See your doctor at once if you have muscle spasms or tightness, or uncontrollable motions (particularly of the neck, mouth, or jaw). Persistent vomiting or severe lightheadedness should also be evaluated by the physician. You have been given a prescription for one control patch. You will need to follow-up with your primary doctor at the [facility] to get a refill on the control patch. Endometriosis have a history of endometriosis and states she has been added to your control patch and you would need a refill on this. I have given you a prescription for 1 patch and you will need to follow-up with your primary doctor to get a refill on this patch. Your pain seems to be due to endometriosis. This is a condition where small bits of tissue from inside the uterus grow outside the uterus. It's most commonly found on the ovaries and on the ligaments that support the tubes. Endometriosis causes pelvic pain, often worse just before and during the period. There may be pain with intercourse. Fertility may be reduced. There are no simple tests that diagnose endometriosis. We prescribe treatment if the symptoms suggest endometriosis. A laparoscopy can show the small islands of endometrial tissue outside the uterus. This procedure is reserved for patients who continue to suffer severe pain. control pills can ease symptoms of endometriosis in most patients. Other hormonal treatment may be prescribed by a wash rack operator. When the pain flares, antiinflammatory medication such as ibuprofen can be helpful. Prescription pain pills should be reserved for severe flare-ups -- not for daily pain. Return if you develop worsening pain, unexplained vaginal bleeding, fever, urinary tract symptoms, or vomiting. Anti-Inflammatory Medication You have received a prescription for an antiinflammatory agent. This is an excellent, safe drug for pain control. In addition, it has potent antiinflammatory effects which are beneficial, especially in the treatment of injuries, arthritis, or tendonitis. It's best to take this medicine with food. Persons with ulcer disease or allergy to aspirin should notify their physician of this before taking this drug. Take the medication exactly as prescribed. Don't take additional doses unless instructed to do so by your doctor. If you develop wheezing, shortness of breath, hives, faintness, stomach pain, vomiting, or dark black stools, return for re-evaluation at once. FOLLOW-UP CARE: If you have been referred to a physician for follow-up care, call the physician s office for an appointment as you were instructed or within the next two days. If you experience worsening or a significant change in your symptoms, notify the physician immediately or return to the Emergency Department at any time for re-evaluation. Prescriptions: Ondansetron [Zofran Odt 4 mg Tablet] 4 mg PO Q6HP PRN #14 tab.rapdis PRN Reason: Naproxen 500 mg PO BIDP PRN #14 tablet PRN Reason: Norelgestromin/Ethin.estradiol [Xulane Patch] 1 each TD Q7D #4 patch.tdwk Forms: Return to Work Referrals: KERI HOYT,HOLLAND Hidalgo MD [NO LOCAL MD] - Follow up as needed
[2018-04-02 18:31] LABS: ALANINE AMINOTRANSFERASE 23 U/L (9-52); ALBUMIN 4.2 g/dL (3.5-5.0); ALKALINE PHOSPHATASE 53 U/L (38-126); ANION GAP 8 (5-19); ASPARTATE AMINO TRANSFERASE 19 U/L (14-36); BILIRUBIN,DIRECT 0.2 mg/dL (0.0-0.4); BILIRUBIN,TOTAL 0.7 mg/dL (0.2-1.3); BLOOD UREA NITROGEN 14 mg/dL (7-20); CALCIUM 9.3 mg/dL (8.4-10.2); CARBON DIOXIDE 24 mmol/L (22-30); CHLORIDE 104 mmol/L (98-107); GLUCOSE 63 mg/dL (75-110); LIPASE 92.8 U/L (23-300); POTASSIUM 4.1 mmol/L (3.6-5.0); SODIUM 135.7 mmol/L (137-145); TOTAL PROTEIN 7.1 g/dL (6.3-8.2)
[2018-04-02 19:46] VITALS: BP 107/60
== END 2018-04-02 19:46 | disposition home or self-care (01) ==
LOC: ER 14:44
DX: R10.2 Pelvic and perineal pain (principal); R11.0 Nausea; Z79.3 Long term (current) use of hormonal contraceptives
CPT/HCPCS: 99284; 96374; 96375; 36415; 82962; 83690; 85025; 81025; 80053; 81001; 74022; J3490; J1885; J2405

== ENCOUNTER 2018-06-23 08:59 | Emergency (ER) | payer OTHER ==
[2018-06-23 10:10] LABS: APPEARANCE,URINE CLEAR; BILIRUBIN,URINE NEGATIVE (NEGATIVE); COLOR,URINE YELLOW; GLUCOSE, URINE NEGATIVE (NEGATIVE); KETONES,URINE NEGATIVE (NEGATIVE); LEUKOCYTE ESTERASE,URINE NEGATIVE (NEGATIVE); NITRITE,URINE NEGATIVE (NEGATIVE); PROTEIN,URINE NEGATIVE (NEGATIVE); URINE SPECIFIC GRAVITY 1.019; UROBILINOGEN,URINE NEGATIVE mg/dL (<2.0)
[2018-06-23] MEDS ORDERED: IBUPROFEN 600 MG TABLET PO ONE (10:18)
--- NOTE | 2018-06-23 11:11 | RADIOLOGY REPORT (SQ) ---
EXAM DESCRIPTION: U/S NON OB PEL TV W/DOPPLER COMPLETED DATE/TIME: 06/23/2018 10:55 am REASON FOR STUDY: left pelvic pain COMPARISON: 10/17/2016 TECHNIQUE: Dynamic and static grayscale images acquired of the pelvis via transvaginal approach and recorded on PACS. Additional selected color Doppler and spectral images recorded. LIMITATIONS: None. FINDINGS: UTERUS: Unremarkable size and echogenicity measuring 7.5 x 5.3 x 4.0 cm. ENDOMETRIAL STRIPE: Endometrial stripe is visualize measuring up to 11 mm. Small amount of fluid is noted within the endometrial canal. CERVIX: No nabothian cysts. RIGHT OVARY AND DOPPLER: Unremarkable in size measuring 3.9 x 2.2 x 2.7 cm. There are multiple perip heral ovarian follicles noted. Unremarkable color Doppler with evidence of flow. LEFT OVARY AND DOPPLER: Unremarkable in size measuring 3.5 x 2.4 x 2.3 cm. There are additional rafy pheral ovarian follicles noted. Unremarkable color Doppler with evidence of flow. FREE FLUID: Trace simple appearing fluid within the pelvis. OTHER: No other significant finding. IMPRESSION: Ovaries demonstrate multiple peripheral follicles which can be seen with PCOS. Recommen d clinical correlation. Small amount of pelvic free fluid, likely physiologic. Otherwise, unremarkable pelvic ultrasound. TECHNICAL DOCUMENTATION: JOB ID: [id number] [employer]- All Rights Reserved Rev Reading location - IP/workstation name: [email or web address]
[2018-06-23 11:57] VITALS: BP 114/67
--- NOTE | 2018-06-23 11:59 | ER Document Report ---
ED General - General Chief Complaint: Pelvic Pain Stated Complaint: PELVIC PAIN Time Seen by Provider: 06/23/18 09:33 Primary Care Provider: ROBBY MASTERS [Primary Care Provider] - Follow up as needed Notes: Patient is a 28-year-old female presents to the emergency department for generalized pelvic pain for the last 24 hours. Patient states she knows she has a history of endometriosis and PCOS. States she is on control currently for her endometriosis and typically [id number] Tylenol helps her pain but has not helped which is why she presents to the emergency room. Patient states she has not seen her primary care provider recently or an SMALL WIND ENERGY INSTALLER recently for this endometriosis or PCO S pain. Patient is denying any vaginal bleeding, vaginal discharge, dysuria. Patient's denying any fever, vomiting, nausea. Past medical history: PCO S, endometriosis, PTSD, bipolar, ADHD Medications: Adderall, BuSpar, Lamictal, Risperdal, prazosin Allergies: Fentanyl, Ativan Last menstrual period: Patient is unsure of her last menstrual cycle states it is normally irregular TRAVEL OUTSIDE OF THE [place] IN LAST 30 DAYS: No - Related Data Allergies/Adverse Reactions: fentanyl Allergy (Verified 06/23/18 08:59) lorazepam [From Ativan] Allergy (Verified 06/23/18 08:59) Past Medical History - General Information source: Patient - Social History Smoking Status: Former Smoker Frequency of alcohol use: None Drug Abuse: None Family History: Reviewed & Not Pertinent Patient has suicidal ideation: No Patient has homicidal ideation: No Renal/ Medical History: Reports: Hx Ovarian Cysts - PCO S. Denies: Hx Peritoneal Dialysis Musculoskeletal Medical History: Reports Hx Musculoskeletal Deformity, Reports Hx Musculoskeletal Trauma Psychiatric Medical History: Reports: Hx Bipolar Disorder Past Surgical History: Reports: Hx Gynecologic Surgery - d/c, laparoscopic surgery x2,, Hx Hysterectomy, Hx Orthopedic Surgery - L knee scope, Hx Tonsillectomy - Immunizations Hx Diphtheria, Pertussis, Tetanus Vaccination: Yes Review of Systems - Review of Systems Constitutional: See HPI. denies: Fever EENT: No symptoms reported Cardiovascular: No symptoms reported Respiratory: No symptoms reported Gastrointestinal: See HPI Genitourinary: See HPI Female Genitourinary: See HPI Musculoskeletal: No symptoms reported Skin: No symptoms reported Hematologic/Lymphatic: No symptoms reported Neurological/Psychological: No symptoms reported Physical Exam - Vital signs Vitals: Temp Pulse Resp BP Pulse Ox 97.5 F 93 16 129/75 H 100 06/23/18 09:02 06/23/18 09:02 06/23/18 09:02 06/23/18 09:02 06/23/18 09:02 - Notes Notes: GENERAL: Alert, interacts well. No acute distress. HEAD: Normocephalic, atraumatic. EYES: Pupils equal, round, and reactive to light. Extraocular movements intact. ENT: Oral mucosa moist, tongue midline. NECK: Full range of motion. Supple. Trachea midline. LUNGS: Clear to auscultation bilaterally, no wheezes, rales, or rhonchi. No respiratory distress. HEART: Regular rate and rhythm. No murmur ABDOMEN: Soft, non-tender. Non-distended. Bowel sounds present in all 4 quadrants. Generalized bilateral pelvic and suprapubic pain noted on examination. More pain noted left pelvic region. EXTREMITIES: Moves all 4 extremities spontaneously. No edema, normal radial and dorsalis pedis pulses bilaterally. No cyanosis. BACK: no cervical, thoracic, lumbar midline tenderness. No saddle anesthesia, normal distal neurovascular exam. NEUROLOGICAL: Alert and oriented x3. Normal speech. cranial nerves II through XI I grossly intact PSYCH: Normal affect, normal mood. SKIN: Warm, dry, normal turgor. No rashes or lesions noted. Course - Re-evaluation Re-evalutation: 06/23/18 11:59 Patient's urine showed no signs of infection, negative hCG. Patient's ultrasound demonstrated normal vascular flow to bilateral ovaries. Did reveal signs of PCO S. Asked to the patient's if she would like us to treat her for any sexually transmitted diseases. Patient states she is not sexually active and has no concerns for sexually transmitted disease and would not like to be tested at this time. Discussed patient's ultrasound results with her at bedside. Discussed need to follow-up with primary care provider and [employer] W[employer] ENERGY INSTALLER. Patient voices understanding, stable for discharge - Vital Signs Vital signs: Temp Pulse Resp BP Pulse Ox 97.9 F 74 16 114/67 97 06/23/18 11:55 06/23/18 11:55 06/23/18 11:55 06/23/18 11:55 06/23/18 11:55 Discharge - Discharge Clinical Impression: PCOS (polycystic ovarian syndrome), Pelvic pain Condition: Stable Disposition: HOME, SELF-CARE Instructions: Pelvic Pain ([facility]), Ob-Lighting Fixture Installer Doctors Additional Instructions: As we discussed you have been seen and treated in the emergency department for your PCO S. Please make sure you follow-up with your primary care provider and inevitably and SMALL WIND ENERGY INSTALLER for further continued care. Please return to the emergency room should you have any other concerning symptoms. Referrals: [facility] [Primary Care Provider] - Follow up as needed [facility] [Provider Group] - Follow up as needed
== END 2018-06-23 12:12 | disposition home or self-care (01) ==
LOC: ER 08:59
DX: E28.2 Polycystic ovarian syndrome (principal); R10.2 Pelvic and perineal pain; Z79.899 Other long term (current) drug therapy; Z87.891 Personal history of nicotine dependence
CPT/HCPCS: 76830; 81001; 81025; 93976; 99284